=== PATIENT | male | born 1990 | race American Indian/Alaskan Native ===

== ENCOUNTER 2023-07-01 09:07 | Emergency (ER) | payer MEDICAID, SELFPAY ==
[2023-07-01 09:08] VITALS: BP 133/73; PULSE 98; RESP 14; TEMP 37; O2SAT 100; BMI 22.4
--- NOTE | 2023-07-01 10:13 | PC.NURSE ---
Pt c/o cold symptoms. Started this am at 0300. Feels tired and light headed. States he has taken nothing for his symptoms. Ambulated to restroom with steady gait.
[2023-07-01 10:19] VITALS: BP 130/70; PULSE 84; RESP 18; O2SAT 98
[2023-07-01 10:36] LABS: COVID19 -Nasal RAPID POSITIVE (Negative)
--- NOTE | 2023-07-01 10:57 | ED.HA ---
HPI - Headache General Chief Complaint: Dizziness Stated Complaint: migraine/ tightness in chest Time Seen by Provider: 07/01/23 10:47 Source: patient Mode of arrival: Ambulatory Limitations: no limitations History of Present Illness HPI Narrative: This is a 33-year-old with history of prior orthopedic surgery. Patient has no other reported medical issues. He states he is had 12 hours of headache, feeling feverish, nasal congestion, nonproductive cough, nausea with spitting up some stuff. Patient states no chest pain no shortness of breath. No belly pain, no diarrhea constipation, no urinary symptoms. No rash or skin changes. No swelling of extremities. Patient states no daily medications. He states he is had an orthopedic surgery on his wrist before. He denies other medical issues. No known drug allergies. Positive for tobacco, occasional alcohol, no illicit. Patient has not taken anything for his headache or symptoms prior to arrival. He is accompanied by his son. Related Data Previous Rx's Medication Instructions Recorded ibuprofen 600 mg tablet 600 mg PO QID PRN fever or pain 07/01/23 #30 tabs ondansetron 4 mg disintegrating 4 mg PO Q6H PRN nausea and 07/01/23 tablet vomiting #10 tabs Allergies Allergy/AdvReac Type Severity Reaction Status Date / Time No Known Drug Allergies Allergy Verified 07/01/23 09:19 Review of Systems Review of Systems ROS Unobtainable: All systems reviewed & are unremarkable except as noted in HPI and below Patient History Social History Smoking Status: Unknown if ever smoked Smoking Status: Unknown if ever smoked alcohol intake frequency: holidays/special occasions only Substance Use Type: does not use Exam Narrative Exam Narrative: GEN: well nourished, well appearing male, alert and oriented x 3, patient appears to be in mild distress. HEENT: Atraumatic, pupils are equal round reactive to light, extraocular movements are intact, nares are clear, TMs are clear with no fluid, there is no conjunctival pallor. HEART: Regular rate and rhythm without murmur, clicks, rubs. No carotid bruits, pulses are equal in upper and lower extremities LUNGS:Lungs clear to auscultation, no wheezes, rales, crackles, chest moves symmetrically ABD:bowel sounds normal, soft, non-tender, no guarding, rebound, rigidity, no masses noted, no hepatosplenomegaly :No CVA tenderness MSCL: Non-tender, no muscle atrophy, muscles strength 5/5 upper and lower extremities, full range of motion, normal gait NEURO:CN 2-12 intact, sensation normal SKIN: No rash, erythema or other skin changes. Initial Vital Signs Initial Vital Signs: Vital Signs Temperature 98.6 F 07/01/23 09:08 Pulse Rate 98 H 07/01/23 09:08 Respiratory Rate 14 07/01/23 09:08 Blood Pressure 133/73 07/01/23 09:08 Pulse Oximetry 100 07/01/23 09:08 Oxygen Delivery Method Room Air 07/01/23 09:08 Course Orders Ordered: Discontinued Medications Ibuprofen (Ibuprofen 400 Mg Tablet) 800 mg PO NOW ONE Stop: 07/01/23 11:06 Last Admin: 07/01/23 11:22 Dose: 800 mg Documented By: CAROL Ondansetron HCl (Ondansetron 4 Mg Odt) 4 mg SL NOW ONE Stop: 07/01/23 11:06 Last Admin: 07/01/23 11:22 Dose: 4 mg Documented By: CAROL Vital Signs Vital signs: Vital Signs - 8 hr 07/01/23 09:08 07/01/23 10:19 Temperature 98.6 F Pulse Rate 98 H 84 Respiratory Rate 14 18 Blood Pressure 133/73 130/70 Pulse Oximetry 100 98 Oxygen Delivery Method Room Air Room Air MDM - Headache Lab Data Labs: Lab Results 07/01/23 Range/Units 10:08 SARS-CoV-2 (PCR) Positive H (Negative) MDM Narrative Medical decision making narrative: 33-year-old male who comes in with headache as well as upper respiratory symptoms who is positive for COVID. Patient's exam is overall benign his vitals are appropriate. Patient is open to some oral ibuprofen here. He was describing spitting up some vomit or frothy stuff so was given Zofran. Patient states he does not have any Tylenol or ibuprofen at home we will give prescription see if insurance will cover also prescription for Zofran. Discharge Plan Departure Patient Disposition: Home Clinical Impression: COVID-19 virus infection Instructions: DI for COVID-19 (Suspected or Confirmed ) Activity Restrictions/Additional Instructions: You have tested positive for coronavirus infection today. You can take Tylenol up to a 1000 mg every 6 hours and/or ibuprofen up to 600 mg every 6 hours as needed. Zofran 1 tablet every 4 hours as needed for nausea. Prescription for Zofran and ibuprofen was [facility] [place] Please return for chest pain, shortness of breath, passing out, persistent vomiting, or other new or concerning changes. Prescriptions: New ondansetron 4 mg tablet,disintegrating 4 mg PO Q6H PRN (Reason: nausea and vomiting) Qty: 10 0RF ibuprofen 600 mg tablet 600 mg PO QID PRN (Reason: fever or pain) Qty: 30 0RF Referrals: Miscellaneous,Doctor, MD [Primary Care Provider] - Stand Alone Forms: Patient Portal/API
[2023-07-01] MEDS: ONDANSETRON 4 MG ODT SL (11:22)
[2023-07-01] MEDS: IBUPROFEN 400 MG TABLET 800 MG PO (11:22)
[2023-07-01 11:30] VITALS: PULSE 78; RESP 18; O2SAT 98
== END 2023-07-01 11:30 | disposition home or self-care (01) ==
PROVIDERS: Emergency Provider Emergency Medicine
DX: U07.1 COVID-19 (principal)
CPT/HCPCS: 87635; 99283; C9803

== ENCOUNTER 2023-07-05 07:39 | Emergency (ER) | payer MEDICAID, SELFPAY ==
[2023-07-05 07:43] VITALS: BP 154/91; PULSE 101; RESP 98; TEMP 37; O2SAT 99; BMI 22.1
--- NOTE | 2023-07-05 08:08 | ED_ITS ---
HPI - Ear Problem General Chief complaint: Ear Stated complaint: poss. ear infection Time Seen by Provider: 07/05/23 07:59 Source: patient Mode of arrival: Ambulatory History of Present Illness HPI Narrative: 33-year-old male with history of prior orthopedic surgeries but no other medical issues. Patient was seen 4 days ago had tested positive for COVID. He states those symptoms have improved significantly but he is had significant pain in his left ear, he states he is had decrease in his hearing. He does not appreciate any drainage from the ear. Patient states pain has been increasing over time. He states it is now radiating down towards his jaw. He states it is the inner ear. He states no pain on the alternate side. He does not report any fevers recently, he states his headaches, nasal congestion and muscle aches have improved significantly. No known drug allergies. Patient has not had similar issues in the past. Related Data Previous Rx's Medication Instructions Recorded ibuprofen 600 mg tablet 600 mg PO QID PRN fever or pain 07/01/23 #30 tabs ondansetron 4 mg disintegrating 4 mg PO Q6H PRN nausea and 07/01/23 tablet vomiting #10 tabs amoxicillin 500 mg tablet 500 mg PO TID #30 tabs 07/05/23 tramadol 50 mg tablet 50 mg PO Q6H PRN pain #7 tabs 07/05/23 Allergies Allergy/AdvReac Type Severity Reaction Status Date / Time No Known Drug Allergies Allergy Verified 07/05/23 07:50 Review of Systems Review of Systems ROS Unobtainable: All systems reviewed & are unremarkable except as noted in HPI and below Patient History Social History Smoking Status: Unknown if ever smoked Smoking Status: Unknown if ever smoked alcohol intake frequency: holidays/special occasions only Substance Use Type: does not use Exam Narrative Exam Narrative: GEN: well nourished, well appearing [default value], alert and oriented x [default value], patient appears to be in [default value] distress. HEENT: Atraumatic, pupils are equal round reactive to light, extraocular movements are intact, nares are clear, right TM has a small amount of fluid, there does appear to be small scarring, left TM is significantly erythematous, bubbled and there is appears to be perforation centrally. No drainage. The canal itself is not swollen or erythematous. Nontender over the pinna, mastoid. Throat is clear without any exudates, erythema, tonsillar enlargement or uvular deviation, normal dentition. No swelling of the face or neck. HEART: Regular rate and rhythm without murmur, clicks, rubs. LUNGS:Lungs clear to auscultation, no wheezes, rales, crackles, chest moves symmetrically ABD:bowel sounds normal, soft, non-tender, no guarding, rebound, rigidity, no masses noted, no hepatosplenomegaly MSCL: Non-tender, no muscle atrophy, muscles strength 5/5 upper and lower extremities, full range of motion, normal gait NEURO:CN 2-12 intact, sensation normal SKIN: No rash, erythema or other skin changes Initial Vital Signs Initial Vital Signs: Vital Signs Temperature 98.6 F 07/05/23 07:43 Pulse Rate 101 H 07/05/23 07:43 Respiratory Rate 98 H 07/05/23 07:43 Blood Pressure 154/91 H 07/05/23 07:43 Pulse Oximetry 99 07/05/23 07:43 Oxygen Delivery Method Room Air 07/05/23 07:43 Course Orders Ordered: Discontinued Medications Amoxicillin (Amoxicillin 250 Mg Capsule) 500 mg PO NOW ONE Stop: 07/05/23 08:43 Last Admin: 07/05/23 08:53 Dose: 500 mg Documented By: KATIA Amoxicillin/Clavulanate Potassium (Amoxicillin/Clav 875/125 Mg) 1 tab PO NOW ONE Stop: 07/05/23 08:43 Tramadol HCl (Tramadol 50 Mg Prepack) 1 bottle MISC SEEINSTR ONE Stop: 07/05/23 08:43 Last Admin: 07/05/23 08:53 Dose: 1 bottle Documented By: KATIA Vital Signs Vital signs: Vital Signs - 8 hr 07/05/23 07:43 07/05/23 08:52 Temperature 98.6 F Pulse Rate 101 H 88 Respiratory Rate 98 H 20 Blood Pressure 154/91 H 116/73 Pulse Oximetry 99 99 Oxygen Delivery Method Room Air Room Air Medical Decision Making MDM Narrative Medical decision making narrative: 33-year-old male who recently tested positive for COVID on the 01 of July, patient returns with COVID symptoms improving but significant left ear pain and loss of hearing. On examination patient has a otitis media with perforated TM. We will cover with oral antibiotics, ENT referral, discussed no drinking or getting water in his ear. Needs for follow-up and return precautions. Discharge Plan Departure Patient Disposition: Home Clinical Impression: Otitis media, Perforation of left tympanic membrane Instructions: Middle Ear Infection, Ruptured Eardrum Activity Restrictions/Additional Instructions: Follow-up with ENT to make sure that your ear drum has healed and your hearing is improving. Call to set up an appointment on Friday. You have a perforation or rupture of your eardrum secondary to infection. You should start to notice an improvement in her pain over the next 24-48 hours as you take the antibiotics. Take oral antibiotics until completed. You can take Tylenol up to a 1000 mg every 6 hours and/or ibuprofen up to 600 mg every 6 hours. If in adequate for pain you can take 1-2 tablets of tramadol every 6 hours as needed. This medication can make you sleepy do not drive, perform hazardous activities or make any major decisions while taking it. This medication will make you constipated please take a stool softener once to twice daily until stools are soft and regular. Prescription sent to [facility] in [place]. Please return for fevers, rapidly worsening pain, new bloody drainage, new swelling of the ear, face, difficulty with swallowing or other new or concerning changes. Prescriptions: New amoxicillin 500 mg tablet 500 mg PO TID Qty: 30 0RF tramadol 50 mg tablet 50 mg PO Q6H PRN (Reason: pain) Qty: 7 0RF No Action ondansetron 4 mg tablet,disintegrating 4 mg PO Q6H PRN (Reason: nausea and vomiting) Qty: 10 0RF ibuprofen 600 mg tablet 600 mg PO QID PRN (Reason: fever or pain) Qty: 30 0RF Referrals: Jakob Maguire MD [Physician] - Miscellaneous,MD Madhav [Primary Care Provider] - Stand Alone Forms: Patient Portal/API
[2023-07-05 08:52] VITALS: BP 116/73; PULSE 88; RESP 20; O2SAT 99
[2023-07-05] MEDS: AMOXICILLIN 250 MG CAPSULE 500 MG PO (08:53)
[2023-07-05] MEDS: TRAMADOL 50 MG PREPACK 1 BOTTLE MISC (08:53)
== END 2023-07-05 08:59 | disposition home or self-care (01) ==
PROVIDERS: Emergency Provider Emergency Medicine
DX: H66.92 Otitis media, unspecified, left ear (principal); H72.92 Unspecified perforation of tympanic membrane, left ear
CPT/HCPCS: 99283

== ENCOUNTER → 2024-06-07 13:59 | Outpatient (CLI) | payer MEDICAID, SELFPAY ==
--- NOTE | 2024-06-07 | DI.RAD.S_ITS ---
PROCEDURE: XR CHEST 2V INDICATIONS: chronic cough TECHNIQUE: 2 views of the chest were acquired. COMPARISON: None. FINDINGS: Surgical changes and devices: None. Lungs and pleura: Lungs are clear. No pleural effusions or pneumothorax. Mediastinum: Mediastinal contours are normal. Heart size is normal. Bones and chest wall: No suspicious bony abnormalities. Soft tissues appear unremarkable. IMPRESSION: No acute cardiopulmonary abnormality is seen. Approved by: Opal Howell M.D.,Ph.D. on 06/07/2024 at 21:18
== END ==
PROVIDERS: PCP Family Medicine; Referring Provider Family Medicine; Visit Provider Family Medicine
DX: R05.3 Chronic cough (principal)
CPT/HCPCS: 71046

== ENCOUNTER 2024-09-02 20:04 | Emergency (ER) | payer MEDICAID, SELFPAY ==
[2024-09-02 20:05] VITALS: BP 151/83; PULSE 80; RESP 16; TEMP 36.6; O2SAT 98; BMI 22.4
--- NOTE | 2024-09-02 20:46 | DI.RAD.S_ITS ---
PROCEDURE: XR CHEST 2V INDICATIONS: SUPINE COUGH X 3 DAYS TECHNIQUE: 2 views of the chest were acquired. COMPARISON: [facility], CR, XR CHEST 2V, 06/07/2024, 14:05. FINDINGS: Surgical changes and devices: None. Lungs and pleura: Lungs are clear. No pleural effusions or pneumothorax. Mediastinum: Mediastinal contours are normal. Heart size is normal. Bones and chest wall: No suspicious bony abnormalities. Soft tissues appear unremarkable. IMPRESSION: No acute cardiopulmonary abnormality is seen. Dictated by: Armaan Hernandez M.D. on 09/02/2024 at 21:21 Approved by: Armaan Hernandez M.D. on 09/02/2024 at 21:21
--- NOTE | 2024-09-02 20:51 | ED.URI ---
HPI - URI/Sore Throat General Chief Complaint: Upper Respiratory Symptoms Stated Complaint: cough, hard to breath laying down Time Seen by Provider: 09/02/24 20:10 Source: patient Mode of arrival: Ambulatory History of Present Illness HPI Narrative: 34-year-old male with no reported past medical history presents with 1 day of nonproductive cough. One week ago patient's son had upper respiratory infection and came to the ER for respiratory treatments. This evening the patient was lying down and had a coughing fit lasting 3-5 minutes. He states that when he sat up he felt lightheaded. He says that he was here for a general checkup because he is a single father and wants to make sure that he is healthy. Related Data Previous Rx's Medication Instructions Recorded ibuprofen 600 mg tablet 600 mg PO QID PRN fever or pain 07/01/23 #30 tabs ondansetron 4 mg disintegrating 4 mg PO Q6H PRN nausea and 07/01/23 tablet vomiting #10 tabs amoxicillin 500 mg tablet 500 mg PO TID #30 tabs 07/05/23 tramadol 50 mg tablet 50 mg PO Q6H PRN pain #7 tabs 07/05/23 Allergies Allergy/AdvReac Type Severity Reaction Status Date / Time No Known Drug Allergies Allergy Verified 09/02/24 20:18 Patient History Social History Smoking Status: Never smoker Smoking Status: Never smoker alcohol intake frequency: holidays/special occasions only Substance Use Type: does not use Exam Initial Vital Signs Initial Vital Signs: Vital Signs Temperature 98 F 09/02/24 20:05 Pulse Rate 80 09/02/24 20:05 Respiratory Rate 16 09/02/24 20:05 Blood Pressure 151/83 H 09/02/24 20:05 Pulse Oximetry 98 09/02/24 20:05 Oxygen Delivery Method Room Air 09/02/24 20:05 Const: Awake, alert, no acute distress, nontoxic appearing Cardiac: regular rate, regular rhythm RESP: unlabored, clear bilaterally, no wheezing GI: Soft, nontender, nondistended, no rebound, no guarding Skin: Warm, Dry, intact, no rashes Neuro: AO x3, CN II-XII grossly intact, moves all extremities Course Orders Ordered: ED Orders 09/02/24 20:46 Chest [XR chest 2V] Stat Vital Signs Vital signs: Vital Signs - 8 hr 09/02/24 20:05 09/02/24 21:31 Temperature 98 F Pulse Rate 80 76 Respiratory Rate 16 Blood Pressure 151/83 H 129/62 Pulse Oximetry 98 97 Oxygen Delivery Method Room Air Room Air MDM - URI/Sore Throat Differential Diagnosis Differential diagnosis: Likely upper respiratory infection, viral infection and bronchitis Imaging Data Chest x-ray: Radiologist's Impression: PROCEDURE: XR CHEST 2V INDICATIONS: SUPINE COUGH X 3 DAYS TECHNIQUE: 2 views of the chest were acquired. COMPARISON: Located Within [facility], , XR CHEST 2V, 06/07/2024, 14:05. FINDINGS: Surgical changes and devices: None. Lungs and pleura: Lungs are clear. No pleural effusions or pneumothorax. Mediastinum: Mediastinal contours are normal. Heart size is normal. Bones and chest wall: No suspicious bony abnormalities. Soft tissues appear unremarkable. IMPRESSION: No acute cardiopulmonary abnormality is seen. Dictated by: Armaan Hernandez M.D. on 09/02/2024 at 21:21 [facility] Narrative Medical decision making narrative: Well-appearing patient with coughing fit earlier today. Vital signs stable on room air. Patient ambulatory without distress or assistance. Chest x-ray negative for acute findings. Lungs clear to auscultation bilaterally. Supportive measures counseled for home. Discharge Plan Departure Patient Disposition: Home Clinical Impression: Upper respiratory infection Instructions: DI for Viral Upper Respiratory Infection -- Adult Activity Restrictions/Additional Instructions: Your x-ray today is normal. You may take Tylenol and ibuprofen as needed per the label instructions if you have pain. You may take [id number] cough medications such as Robitussin for cough. Prescriptions: No Action ondansetron 4 mg tablet,disintegrating 4 mg PO Q6H PRN (Reason: nausea and vomiting) Qty: 10 0RF ibuprofen 600 mg tablet 600 mg PO QID PRN (Reason: fever or pain) Qty: 30 0RF amoxicillin 500 mg tablet 500 mg PO TID Qty: 30 0RF tramadol 50 mg tablet 50 mg PO Q6H PRN (Reason: pain) Qty: 7 0RF Referrals: Joceline Uribe MD [Primary Care Provider] - Stand Alone Forms: Patient Portal/API, Work Release Note
[2024-09-02 21:31] VITALS: BP 129/62; PULSE 76; O2SAT 97
== END 2024-09-02 21:40 | disposition home or self-care (01) ==
PROVIDERS: Emergency Provider Emergency Medicine; PCP Family Medicine
DX: J06.9 Acute upper respiratory infection, unspecified (principal); R05.9 Cough, unspecified
CPT/HCPCS: 71046; 99281; 99283

== ENCOUNTER 2025-07-05 08:04 | Emergency (ER) | payer MEDICAID, SELFPAY ==
--- NOTE | 2025-07-05 08:08 | ED.BACK ---
HPI - Back Pain/Injury General Chief Complaint: Back Pain/Injury Stated Complaint: Severe back pain x 6 days getting worse Time Seen by Provider: 07/05/25 08:08 History of Present Illness HPI Narrative: 35-year-old gentleman with no significant past medical history was moving a pool table and refrigerator last when he started developing sharp electric type sensation shooting up the back up to the neck despite taking aspirin no significant relief of his symptoms. He denies bowel or bladder incontinence, gait instability, numbness, tingling, down the legs. Nothing makes it better or worse. Other than what is stated 14 point review of system is negative. Related Data Previous Rx's ?Medication ?Instructions ?Recorded ibuprofen 600 mg tablet 600 mg PO QID PRN fever or pain 07/01/23 #30 tabs ondansetron 4 mg disintegrating 4 mg PO Q6H PRN nausea and 07/01/23 tablet vomiting #10 tabs amoxicillin 500 mg tablet 500 mg PO TID #30 tabs 07/05/23 tramadol 50 mg tablet 50 mg PO Q6H PRN pain #7 tabs 07/05/23 diclofenac sodium 75 mg 75 mg PO BID PRN pain #30 tabs 07/05/25 tablet,delayed release Allergies Allergy/AdvReac Type Severity Reaction Status Date / Time No Known Drug Allergies Allergy Verified 07/05/25 08:12 Review of Systems Review of Systems ROS Unobtainable: All systems reviewed & are unremarkable except as noted in HPI and below Patient History Social History Smoking Status: Never smoker alcohol intake frequency: holidays/special occasions only Exam Narrative Exam Narrative: GENERAL: [35] year old patient appears stated age. Well-developed patient, in mild distress. HEAD: Atraumatic. Normocephalic. EYES: Pupils equal round and reactive. Extraocular motions intact. No scleral icterus. No injection or drainage. ENT: Nose without bleeding, purulent drainage. Throat without erythema, tonsillar hypertrophy or exudate. Airway patent. NECK: Trachea midline. Non tender CARDIOVASCULAR: Regular rate and rhythm without murmurs, gallops, or rubs. RESPIRATORY: Clear to auscultation. Breath sounds equal bilaterally. No wheezes, rales, or rhonchi. GASTROINTESTINAL: Abdomen soft, non-tender, nondistended. EXTREMITIES: No edema or joint tenderness. BACK: NO acute deformity or crepitance. No flank tenderness. TTP of L 4/5/S1 paralumbosacral region, motor sensory intact NEURO: AOx3. GCS 15 nonfocal neuro exam SKIN: No rash or erythema of visible areas Initial Vital Signs Initial Vital Signs: Vital Signs Temperature 98 F 07/05/25 08:11 Pulse Rate 89 07/05/25 08:11 Respiratory Rate 17 07/05/25 08:11 Blood Pressure 134/78 07/05/25 08:11 Pulse Oximetry 97 07/05/25 08:11 Oxygen Delivery Method Room Air 07/05/25 08:11 Procedures [facility] [place] Procedure Name of Procedure: L sided steroid trigger point injection Side (if applicable): left Location: L 4 L 5 S1 Time out performed: Yes (L sided steroid trigger point injection) Technique/Description of procedure performed: Patient draped and prepped in a sterile fashion. Using Kenalog 40 mg 1 mL and lidocaine 2% without epi 4 mL in a 5 cc syringe a total of 10 mL was injected into the left paraLumbosacral region without any complication. Patient tolerated procedure: Well Complications: none Course Orders Ordered: ED Orders 07/05/25 08:48 CT lumbar spine wo con Stat Discontinued Medications Acetaminophen (Acetaminophen 325 Mg Tablet) 975 mg PO NOW ONE Stop: 07/05/25 08:50 Last Admin: 07/05/25 09:15 Dose: 975 mg Documented By: DANICA Ibuprofen (Ibuprofen 400 Mg Tablet) 800 mg PO NOW ONE Stop: 07/05/25 08:50 Last Admin: 07/05/25 09:15 Dose: 800 mg Documented By: DANICA Lidocaine HCl (Lidocaine 2% Inj Mdv 20ml) 20 ml INJ INTRA-OP ONE Stop: 07/05/25 08:50 Last Admin: 07/05/25 09:16 Dose: 20 ml Documented By: DANICA Triamcinolone (Triamcinolone 40 Mg/Ml Vial) 40 mg INJ NOW ONE Stop: 07/05/25 08:50 Last Admin: 07/05/25 09:15 Dose: 40 mg Documented By: DANICA Vital Signs Vital signs: Vital Signs - 8 hr 07/05/25 08:11 Temperature 98 F Pulse Rate 89 Respiratory Rate 17 Blood Pressure 134/78 Pulse Oximetry 97 Oxygen Delivery Method Room Air MDM - Back Pain/Injury Imaging Data CT scan - abdomen/pelvis: Radiologist's Impression: [address] [address] [address] Scan Report Signed Patient: Boby Butler MR#: [id number] : 1990 Acct:[id number] Age/Sex: 35 / M Date of Service: 07/05/25 Loc: ED Accession Number: [id number] Procedure: CT lumbar spine wo con Ordering Provider: Elliott Orellana D.O. PROCEDURE: CT LUMBAR SPINE WO CON INDICATIONS: back pain TECHNIQUE: Noncontrast 3 mm thick sections acquired from the T12 level to the sacrum. Sagittal and coronal reformats were constructed. For radiation dose reduction, the following was used: automated exposure control. COMPARISON: None. FINDINGS: Image quality: Excellent. Bones: There is normal bony alignment. No acute vertebral body compression fractures. No suspicious lytic or blastic bony lesions. No pars defects. T12-L1: Unremarkable. L1-L2: Unremarkable. L2-L3: Unremarkable. L3-L4: Unremarkable. L4-L5: Broad-based disc bulge with mild central canal stenosis and [id number] bilateral neural foraminal narrowing slightly worse on the right side. L5-S1: Diffuse disc bulge without significant central canal stenosis or neural foraminal narrowing. Soft tissues: No retroperitoneal masses or hematomas. Visualized aorta is normal in caliber. IMPRESSION: 1. No acute compression fracture or spondylolisthesis in lumbar spine. 2. Mild disc bulge at L4-5 level with mild central canal stenosis and right worse than left bilateral neural foraminal narrowing as above. 3. No significant central canal stenosis or neural foraminal narrowing in rest of the lumbar spine. 4. No gross paraspinous soft tissue abnormalities. Dictated by: Wayne Coffman M.D. on 07/05/2025 at 9:23 Approved by: Wayne Coffman M.D. on 07/05/2025 at 9:[address] [facility] Narrative Medical decision making narrative: All lab work, vital signs nurse, triage note, medication list, previous ER visits, and all imaging studies reviewed. CT lumbar showed mild disc bulge at L4-L5 with mild central canal stenosis and right worse than left bilateral neural foraminal narrowing as above. Patient given Tylenol ibuprofen and left-sided trigger point steroid injection for which he tolerated with no complication. Differential diagnosis lumbar strain, herniated disc, spondylosis, spondylolisthesis. DC home on diclofenac rx. And to follow up with PCP in 1-2 weeks if no improvement in symptoms. Discharge Plan Departure Patient Disposition: Home Clinical Impression: Acute low back pain Qualifiers: Back pain laterality: left Sciatica presence: without sciatica Qualified Code(s): M54.50 - Low back pain, unspecified Instructions: DI for Low Back Pain Activity Restrictions/Additional Instructions: Return with new or worsening symptoms. Follow up with PCP 1-2 weeks if no improvement in symptoms. Take your medicine as directed. Prescriptions: New diclofenac sodium 75 mg tablet,delayed release (DR/EC) 75 mg PO BID PRN (Reason: pain) Qty: 30 0RF No Action ondansetron 4 mg tablet,disintegrating 4 mg PO Q6H PRN (Reason: nausea and vomiting) Qty: 10 0RF ibuprofen 600 mg tablet 600 mg PO QID PRN (Reason: fever or pain) Qty: 30 0RF amoxicillin 500 mg tablet 500 mg PO TID Qty: 30 0RF tramadol 50 mg tablet 50 mg PO Q6H PRN (Reason: pain) Qty: 7 0RF Referrals: Joceline Uribe MD [Primary Care Provider, Family Practice] Stand Alone Forms: Patient Portal/API
[2025-07-05 08:11] VITALS: BP 134/78; PULSE 89; RESP 17; TEMP 36.6; O2SAT 97; BMI 23.9
--- NOTE | 2025-07-05 08:48 | DI.CT.S_ITS ---
PROCEDURE: CT LUMBAR SPINE WO CON INDICATIONS: back pain TECHNIQUE: Noncontrast 3 mm thick sections acquired from the T12 level to the sacrum. Sagittal and coronal reformats were constructed. For radiation dose reduction, the following was used: automated exposure control. COMPARISON: None. FINDINGS: Image quality: Excellent. Bones: There is normal bony alignment. No acute vertebral body compression fractures. No suspicious lytic or blastic bony lesions. No pars defects. T12-L1: Unremarkable. L1-L2: Unremarkable. L2-L3: Unremarkable. L3-L4: Unremarkable. L4-L5: Broad-based disc bulge with mild central canal stenosis and [id number] bilateral neural foraminal narrowing slightly worse on the right side. L5-S1: Diffuse disc bulge without significant central canal stenosis or neural foraminal narrowing. Soft tissues: No retroperitoneal masses or hematomas. Visualized aorta is normal in caliber. IMPRESSION: 1. No acute compression fracture or spondylolisthesis in lumbar spine. 2. Mild disc bulge at L4-5 level with mild central canal stenosis and right worse than left bilateral neural foraminal narrowing as above. 3. No significant central canal stenosis or neural foraminal narrowing in rest of the lumbar spine. 4. No gross paraspinous soft tissue abnormalities. Dictated by: Wayne Coffman M.D. on 07/05/2025 at 9:23 Approved by: Wayne Coffman M.D. on 07/05/2025 at 9:25
[2025-07-05] MEDS: ACETAMINOPHEN 325 MG TABLET 975 MG PO (09:15)
[2025-07-05] MEDS: TRIAMCINOLONE 40 MG/ML VIAL INJ (09:15)
[2025-07-05] MEDS: IBUPROFEN 400 MG TABLET 800 MG PO (09:15)
[2025-07-05] MEDS: LIDOCAINE 2% INJ MDV 20ML 20 ML INJ (09:16)
[2025-07-05 09:57] VITALS: BP 128/79; PULSE 78; RESP 16; O2SAT 98
== END 2025-07-05 09:58 | disposition home or self-care (01) ==
PROVIDERS: Emergency Provider Family Medicine; PCP Family Medicine
DX: M54.50 Low back pain, unspecified (principal); M54.2 Cervicalgia; M51.369 Other intervertebral disc degeneration, lumbar region without mention of lumbar back pain or lower extremity pain; M48.061 Spinal stenosis, lumbar region without neurogenic claudication
CPT/HCPCS: 20552; 72131; 99283; 99284